=== PATIENT | female | born 1955 | race Two or more races ===

== ENCOUNTER 2024-01-03 18:43 | Emergency (ER) | payer MEDICARE ==
[~2024-01-03] VITALS: Ht 152.4 cm; Wt 59.0 kg
[2024-01-03] MEDS ORDERED: DONE5TAB34 PO (19:13)
[2024-01-03] MEDS ORDERED: DOCU-141 PO (19:13)
[2024-01-03] MEDS ORDERED: MELA3TAB47 PO (19:13)
[2024-01-03] MEDS ORDERED: LEVO88TA5 PO (19:13)
[2024-01-03] MEDS ORDERED: CHOL100045 PO (19:13)
[2024-01-03] MEDS ORDERED: ASCO500C6 PO (19:13)
[2024-01-03] MEDS ORDERED: QUET25TA PO (19:13)
[2024-01-03] MEDS ORDERED: PSYL822P6 PO (19:13)
[2024-01-03] MEDS ORDERED: DIVA125C5 PO (19:13)
[2024-01-03] MEDS ORDERED: CRAN425C6 PO (19:13)
[2024-01-03] MEDS ORDERED: SERT50TA PO (19:13)
[2024-01-03 19:15] LABS: BASOPHILS # (AUTO) 0.1 K/UL (0.0-0.2); BASOPHILS % (AUTO) 0.8 % (0.0-2.0); EOSINOPHILS # (AUTO) 0.1 K/uL (0.0-0.7); EOSINOPHILS % (AUTO) 1.6 % (0.0-7.0); HEMATOCRIT 40.5 % (31.2-41.9); HEMOGLOBIN 13.7 g/dL (10.9-14.3); LYMPHOCYTES # (AUTO) 2.1 K/uL (0.8-4.8); LYMPHOCYTES % (AUTO) 30.5 % (20.5-51.5); MEAN CORPUSCULAR HEMOGLOBIN 31.4 uug (24.7-32.8); MEAN CORPUSCULAR HGB CONC 34 g/dL (32.3-35.6); MEAN CORPUSCULAR VOLUME 92.8 fL (75.5-95.3); MONOCYTES # (AUTO) 0.4 K/uL (0.1-1.30); MONOCYTES % (AUTO) 5.7 % (0.0-11.0); NEUTROPHILS # (AUTO) 4.2 K/uL (1.8-8.9); NEUTROPHILS % (AUTO) 61.4 % (38.5-71.5); PLATELET COUNT (AUTO) 248 K/uL (179-408); RED BLOOD CELL COUNT(AUTO) 4.37 MIL/uL (3.63-4.92); RED CELL DISTRIBUTION WIDTH 14.1 % (12.3-17.7); WHITE BLOOD COUNT (AUTO) 6.8 K/uL (3.8-11.8)
[2024-01-03 19:24] LABS: CALCIUM 8.5 mg/dL (8.5-10.1); CREATININE 0.7 mg/dL (0.6-1.3); POTASSIUM 3.9 mmol/L (3.5-5.1)
[2024-01-03 19:29] LABS: BILIRUBIN,DIRECT 0.1 mg/dL (0.0-0.2); BILIRUBIN,TOTAL 0.4 mg/dL (0.2-1.0); TOTAL PROTEIN, SERUM 7.4 g/dL (6.4-8.2)
[2024-01-03 19:49] LABS: *OCCULT BLOOD STOOL NEGATIVE (NEGATIVE)
[2024-01-03] MEDS: IV NORMAL SALINE 1000 ML BAG IV ONE (20:29)
[2024-01-03 22:59] VITALS: BP 110/65; TEMP 98.6; O2SAT 99
== END 2024-01-03 22:59 | disposition home or self-care (01) ==
LOC: ER 18:43
DX: E03.9 Hypothyroidism, unspecified (principal); F03.93 Unspecified dementia, unspecified severity, with mood disturbance; F32.A Depression, unspecified; Z79.899 Other long term (current) drug therapy
CPT/HCPCS: 36415; 83605; 84443; 85025; 85730; 86850; 86900; 86901; A4606; A4663; J7040